=== PATIENT | male | born 1970 | race Caucasian/White ===

== ENCOUNTER → 2020-09-04 | Outpatient (CLI) | payer OTHER, MEDICARE ==
[~2020-09-04] MED LIST: ATIVAN 0.50.5 MG/TAB PO; CELEBREX 200MG200 MG PO; DEPAKOTE ER 50500 MG PO; FLEXERIL 1010 MG/TAB PO; IMITREX 6M6 MG/0.5 M SQ; KLONOPIN 0.5MG0.5 MG PO; MOTRIN 200200 MG/TAB PO; NASONEX SPRAY17 GM NS; NICODERM C21 MG/PATC TOP; NITROSTAT0.4 MG/TAB SL; PEPCID 20MG TAB20 MG PO; PLAVIX 75MG TAB75 MG PO; PROVENTIL0.09 MG/A1 INH; REMERON45 MG PO; ROBAXIN 50500 MG/TAB PO; RT ADVAIR 228 DISKUS IH; SINGULAIR 110 MG/TAB PO; TYLENOL 325MG325 MG PO; VIMPAT100 MG PO; ZYRTEC 10MG10 MG PO
== END ==
LOC: COL.RAD 13:01
DX: G43.009 Migraine without aura, not intractable, without status migrainosus (principal); R56.9 Unspecified convulsions